=== PATIENT | male | born 1955 | race Caucasian/White ===

== ENCOUNTER 2018-04-09 11:21 | Inpatient (IN) | payer OTHER, SELFPAY ==
[2018-04-09] VITALS (9 sets, daily range): BP systolic 118–147; BP diastolic 54–89; PULSE 85–99; RESP 16–18; TEMP 36.4–37.1; O2SAT 97–100; BMI 19.8; BMI 21.1
--- NOTE | 2018-04-09 11:51 | RAD_ITS ---
STUDY: X-RAY - PELVIS AND LEFT HIP REASON FOR EXAM: Left hip injury from a 12 foot fall. TECHNIQUE: Radiological exam, hip, unilateral, with pelvis when performed; 2 or 3 views. COMPARISON: None. FINDINGS: Normal visualized soft tissue structures. Normal bilateral iliac wings, sacroiliac joints and visualized sacrum. Normal bilateral superior and inferior pubic rami. Normal pubic symphysis. Normal bilateral ischial tuberosities. There is a comminuted left intertrochanteric fracture with angulation/foreshortening. Normal acetabulum. Normal hip joint. RAD/HIP, UNI W/ Pelvis 2-3 Views IMPRESSION: Left intertrochanteric fracture. Electronically Signed: Rashi Dean MD at 13:00 EST Tel , Service support ,
--- NOTE | 2018-04-09 11:58 | ED.DCSUM_ITS ---
- ER Visit Summary Date of Service: 04/09/18 Chief Complaint: Fell 12 feet and left hip pain History of Present Illness: The patient is a 62 M past medical history. Patient was on a ladder working on the roof for work the ladder slipped he fell approximately 12 feet to cement landing on his left hip. Unable to stand. Unable to bear weight. Denies any other injuries. No prior hip history. Denies hitting his head. Denies any LOC. He is on no medications and no blood thinners. Physical Examination: Older male vital signs are stable afebrile. Pulse ox 9% on room air no hypoxia. H EENT exam atraumatic. Pupils round reactive light. Extra motions are intact. No signs of facial or scalp trauma nontender no hematomas. C-spine nontender. Trachea midline. Full range of motion to his neck. Lungs clear to auscultation bilaterally. Chest wall nontender. Heart regular rate and rhythm no murmur rate about 90. Abdomen soft nontender. No signs of trauma. Pelvic girdle intact. Pain on palpation to his left hip. With decreased range of motion. And pain with passive range of motion. Both upper extremities right lower extremity nontender normal. His distal left thigh, knee, lower leg, ankle and foot are nontender neurovascular intact. He can wiggle his toes. He has normal sensation of both feet. He is a normal DP pulse on the left. Back is nontender. Neurologically is awake and alert with no focal motor deficits. Test Results: Pelvis and left hip x-ray shows a left hip comminuted intertrochanteric hip fracture. Femur otherwise unremarkable. Chest x-ray no acute abnormality. Normal cardiac silhouette. CBC normal. BMP normal. PT/INR normal. EKG sinus rhythm rate 82 no acute abnormality. Emergency Department Course and Treatment: Patient treated with IV morphine and Zofran Repeat exam patient is doing well at 1418. Treatment Plan: I spoke with Dr. Diallo Alicea on-call for orthopedics and Dr. rKistal Burgos of the hospitalist. Patient will be admitted. Disposition: Admit Impression: Fell approximately 12 feet from a ladder Workers comp injury Acute left hip comminuted hip fracture This note was generated with [employer] dictation software. It may contain incorrect words, spelling, and punctuation that were not noted in review of the chart prior to signing ED Disposition - Plan for ED Patient: Chief Complaint: Lower Extremity Injury
[2018-04-09] MEDS: Ondansetron 4 MG/2 ML Vial IV (12:09)
[2018-04-09] MEDS: morphine 8 MG/ML Syringe IV (12:09)
--- NOTE | 2018-04-09 12:55 | RAD_ITS ---
STUDY: X-RAY - LEFT FEMUR REASON FOR STUDY: Lateral rotation of foot, 12 foot fall. TECHNIQUE: Radiological exam, femur, minimum 2 views COMPARISON: None. FINDINGS: There is a comminuted intertrochanteric fracture with angulation and foreshortening. There is chondrocalcinosis in the knee. There is vascular calcification. RAD/Femur Min 2 Views IMPRESSION: Left intertrochanteric fracture. Electronically Signed: Rashi Dean MD at 13:52 EST Tel , Service support ,
--- NOTE | 2018-04-09 12:58 | EKG12_ITS ---
Test Reason : FALL Blood Pressure : / mmHG Vent. Rate : 082 BPM Atrial Rate : 082 BPM P-R Int : 126 ms QRS Dur : 096 ms QT Int : 388 ms P-R-T Axes : 073 043 074 degrees QTc Int : 453 ms Normal sinus rhythm Incomplete right bundle branch block Borderline ECG Confirmed by LEONORA VICKERS, NADIA ([id number]), order editor CLAIRE BUCKLEY ([id number] on 04/11/2018 3:23:15 PM Referred By: NANCY Confirmed By:NADIA LEA MD
--- NOTE | 2018-04-09 13:00 | RAD_ITS ---
STUDY: X-RAY CHEST REASON FOR EXAM: Male, 62 years old. [Fracture. TECHNIQUE: Single AP portable view of the chest. COMPARISON: None. FINDINGS: Hyperinflation. The lungs are clear. There is no demonstrated pleural abnormality. Normal size heart. Normal mediastinum and ira. Normal visualized pulmonary arteries. Normal visualized aortic arch and descending thoracic aorta. Normal visualized thoracic spine. Normal visualized ribs, clavicles, and shoulders. There is no demonstrated abnormality of the visualized soft tissue structures of the upper abdomen. RAD/Chest 1 View (Portable) IMPRESSION: Hypoinflation. The lungs are clear. Electronically Signed: Felipe Ferguson MD at 13:42 EST Tel [phone], Service support ,
[2018-04-09 13:15] LABS: Hematocrit 41.3 % (40-54); Hemoglobin 14.1 g/dl (13.0-16.5); Mean Corp Hgb Conc 34.1 g/gl (32-36); Mean Corpuscular Hgb 31.8 pg (27.0-32.0); Mean Platelet Vol. 8.5 fl (6.2-12.0); Platelet Count 161 K/mm3 (150-450); RBC Distribution Width CV 12.9 % (11.6-14.6); RBC Distribution Width SD 43.8 fl (35.1-43.9); Red Blood Count 4.44 M/mm3 (4.6-6.2); White Blood Count 5.1 K/mm3 (4.4-11.0)
[2018-04-09 13:18] LABS: Prothrombin Time (Protime)PT. 13.6 SECONDS (11.7-14.9); Scan Indicated on CBC? Y/N NO
[2018-04-09 13:22] LABS: Anion Gap 9 (5-15); BUN 10 mg/dL (7-18); Calcium,Total 8.7 mg/dL (8.5-10.1); Chloride 101 mmol/L (98-107); Creatinine, Serum 0.77 mg/dL (0.70-1.30); EST Glomerular Filtration Rate 109 mL/min (>60); Est Glom Filt Rate - Afr Amer 132 mL/min (>60); Estimated Creatinine Clearance 82.96 ml/min; Glucose 140 mg/dL (74-106); Potassium 3.7 mmol/L (3.5-5.1); Sodium Level 138 mmol/L (136-145)
--- NOTE | 2018-04-09 14:31 | PCM.HP.STD ---
Problem List (1) Fracture, intertrochanteric, left femur Status: Acute History of Present Illness Date of Admission: 04/09/18 Chief Complaint: left hip pain The patient is a 62 year old M with no medical hx who presents to the ER with c/o left hip pain and inability to walk. He was fixing a roof this morning and fell about 12 feet onto his left hip. He developed severe pain and inability to stand up. He dragged himself to his truck. He has no numbness or tingling. He has had multiple surgeries in the past with no issues with anasthesia. He currently has no SOB, cough, dizziness, LH, nausea or vomiting. He has no pain unless he moves and appears comfortable. XRay shows left comminuted intertroch fx. Dr. Alicea will take him to surgery. [] Past Medical History Allergies No Known Allergies Allergy (Verified 04/09/18 11:53) Lives: Spouse/ Significant Other Smoking Status: Former smoker Alcohol: None Drugs: None - *Family History Maternal History Items: Heart Disease - MVP Paternal History Items: No pertinent history Review of Systems Constitutional: Denies: Chills, Fever, Weight Change HEENT: Denies: Head Aches, Sinus Congestion, Sinus Drainage Cardiovascular: Denies: Chest Pain, Palpitations Respiratory: Denies: Cough, Shortness of breath at rest, Sputum production Gastrointestinal: Denies: Abdominal Pain, Nausea, Vomiting Genitourinary: Denies: Dysuria Musculoskeletal: Reports: Joint Pain - left hip. Denies: Joint Tenderness Skin: Denies: Rash, Wounds Neurological: Denies: Numbness, Tingling, Focal weakness Psychiatric: Denies: Anxiety, Depression, Homicidal Ideations, Suicidal Ideations Hematologic/ Lymphatic: Denies: Easy Bruising, Easy Bleeding VTE Information - Inpt Only VTE Present on Admission: No VTE Mechan Device Prophylaxis: SCD's VTE Pharm Prophylaxis ordered?: No Reason prophylaxis not ordered:: Medical Contraindication Patient Problems: Active and Suspected Problems Fracture, intertrochanteric, left femur (Acute) - Physical Exam General: Alert, Oriented x3, Cooperative HEENT: Atraumatic, PERRLA, EOMI, Normocephalic Neck: Supple, No JVD, Negative Carotid Bruits Lungs: Clear to auscultation, Normal air movement Cardiovascular: Regular rate, No murmurs Abdomen: Bowel Sounds Present, Soft, Non Tender Extremities: No edema, Capillary Refill Less than 3 Seconds Skin: No rashes, No breakdown Musculoskeletal: No Tenderness to Palpation of Joints or Extremities, - - left leg is cool, PMS intact. Neurological: Cranial nerves II-XII grossly intact Psych/Mental Status: Normal Affect, Appropriate, Alert and oriented to time, place, person, mood and affect Vital Signs Temp Pulse Resp BP Pulse Ox 97.8 F 94 16 132/84 H 97 04/09/18 11:22 04/09/18 14:11 04/09/18 14:11 04/09/18 14:11 04/09/18 14:11 Oxygen Delivery Method Room Air Weight: 130 lb Body Mass Index (BMI) 19.8 Laboratory Tests Past 24 Hrs 04/09/18 04/09/18 04/09/18 11:30 11:30 11:30 WBC 5.1 RBC 4.44 L Hgb 14.1 Hct 41.3 MCV 93.0 MCH 31.8 MCHC 34.1 RDW 12.9 RDW Differential 43.8 Plt Count 161 MPV 8.5 PT 13.6 INR 1.0 Sodium 138 Potassium 3.7 Chloride 101 Carbon Dioxide 28.0 Anion Gap 9 BUN 10 Creatinine 0.77 Estim Creat Clear Calc 82.96 Est GFR (MDRD) Af Amer 132 Est GFR (MDRD) Non-Af 109 BUN/Creatinine Ratio 13.0 Glucose 140 H Calcium 8.7 Blood Type Antibody Screen 04/09/18 13:15 WBC RBC Hgb Hct MCV MCH MCHC RDW RDW Differential Plt Count MPV PT INR Sodium Potassium Chloride Carbon Dioxide Anion Gap BUN Creatinine Estim Creat Clear Calc Est GFR (MDRD) Af Amer Est GFR (MDRD) Non-Af BUN/Creatinine Ratio Glucose Calcium Blood Type A POSITIVE Antibody Screen NEGATIVE Assessment/Plan All Active Problems Fracture, intertrochanteric, left femur (Acute) 1. Acute comminunted left intertroch fx 2/2 fall from 12 feet - Consult Dr. Alicea for surgery. Stable at rest. No medical hx. Does not take meds. Care as per orthopedic surgery. CXR is clear. DVT ppx: per ortho DC planning: PTOT This patient was seen by Anselmo Tinsley PA-C under the supervision of Dr. Burgos.
[2018-04-09] MEDS: morphine 8 MG/ML Syringe 6 MG IV (15:22)
[2018-04-09] MEDS: 0.9% NaCl Peripheral Flush Adult/Peds IV (15:43)
[2018-04-09 15:53] LABS: Magnesium 1.8 mg/dL (1.6-2.6)
[2018-04-09] MEDS: 0.9% Normal Saline 1,000 ML 125 ML IV ×2 (16:04→21:33)
--- NOTE | 2018-04-09 18:50 | RAD_ITS ---
STUDY: X-RAY - PELVIS AND LEFT HIP REASON FOR EXAM: Male, 62 years old. Left hip ORIF TECHNIQUE: Radiological exam, hip, unilateral, with pelvis when performed; minimum of 4 views COMPARISON: None. FINDINGS: 5 images were submitted, as radiology support for c-arm imaging in the operating room. This is not a diagnostic examination. Images for documentation purposes only. Fluoroscopy time if reported: RAD/Hip uni 4+ views with Pelvis IMPRESSION: Intraoperative fluoroscopic image guidance. Electronically Signed: Belinda Kya MD at 23:47 EST , Service support ,
[2018-04-09] MEDS: Cefazolin 1 GM/50 ML BAG IV (19:14)
--- NOTE | 2018-04-09 20:25 | CON.PCM_ITS ---
Reason for Consult Date of Consultation: 04/09/18 History of Present Illness: The patient is a 62 year old male patient that was at work earlier today when he fell off a ladder landing on his left hip. Left hip was fine before that. He denies head injury or loss of consciousness. He was not able to ambulate. He was brought to the hospital and diagnosed with a left hip fracture. He was admitted to the medical service. Orthopedics was appropriately consulted. Denies pain other than left hip. [] Past Medical History Allergies No Known Allergies Allergy (Verified 04/09/18 11:53) Home Medications: Ambulatory Orders Medication Instructions Recorded Glucosamine/D3/Boswellia Antonia 1 tab PO DAILY 04/09/18 [Glucosamine Daily Complex Tab] Multivit-Min/FA/Lycopen/Lutein 1 tab PO DAILY 04/09/18 [Centrum Silver Men Tablet] [place]-3 Fatty Acids/Fish Oil [Fish 1 each PO DAILY 04/09/18 Oil 1,000 mg Capsule] RX: Zinc 50 mg PO DAILY 04/09/18 Saw [place] Fruit [Saw [place]] 450 mg PO BID 04/09/18 Surgical History: appendectomy, herniorrhaphy Lives: Spouse/ Significant Other Smoking Status: Former smoker Tobacco Use: Cigarettes Alcohol: None Drugs: None - *Family History Maternal History Items: Heart Disease - MVP Paternal History Items: No pertinent history Patient Problems: Active and Suspected Problems Fracture, intertrochanteric, left femur (Acute) Objective: Patient is lying comfortably in bed. He is alert and oriented x3 and cooperative exam. Pleasant during exam. He denies right hip pain. Does complain of left hip pain with moving it. He has pain on palpation about the left hip. He had no right hip pain with rotation or motion of the right hip. No pain with axial loading of the right hip. No calf pain or swelling bilaterally. Good active plantar flexion dorsiflexion toes and ankles. Distal pulses and sensation are intact. Skin is intact about the left hip. No signi ficant pain at the left knee. X-rays of the left hip and femur reviewed showing a comminuted displaced left hip intertrochanteric fracture. Laboratory work and vital signs reviewed. Medication list reviewed Case discussed with hospitalist and anesthesia service - Physical Exam Vital Signs Temp Pulse Resp BP Pulse Ox 98.7 F 87 18 118/78 98 04/09/18 15:42 04/09/18 15:42 04/09/18 15:42 04/09/18 15:42 04/09/18 15:42 Oxygen Delivery Method Room Air Weight: 63.049 kg Body Mass Index (BMI) 21.1 Laboratory Tests Past 24 Hrs 04/09/18 04/09/18 04/09/18 11:30 11:30 11:30 WBC 5.1 RBC 4.44 L Hgb 14.1 Hct 41.3 MCV 93.0 MCH 31.8 MCHC 34.1 RDW 12.9 RDW Differential 43.8 Plt Count 161 MPV 8.5 PT 13.6 INR 1.0 Sodium 138 Potassium 3.7 Chloride 101 Carbon Dioxide 28.0 Anion Gap 9 BUN 10 Creatinine 0.77 Estim Creat Clear Calc 82.96 Est GFR (MDRD) Af Amer 132 Est GFR (MDRD) Non-Af 109 BUN/Creatinine Ratio 13.0 Glucose 140 H Calcium 8.7 Magnesium Blood Type Antibody Screen 04/09/18 04/09/18 11:30 13:15 WBC RBC Hgb Hct MCV MCH MCHC RDW RDW Differential Plt Count MPV PT INR Sodium Potassium Chloride Carbon Dioxide Anion Gap BUN Creatinine Estim Creat Clear Calc Est GFR (MDRD) Af Amer Est GFR (MDRD) Non-Af BUN/Creatinine Ratio Glucose Calcium Magnesium 1.8 Blood Type A POSITIVE Antibody Screen NEGATIVE Assessment/Plan All Active Problems Fracture, intertrochanteric, left femur (Acute) Left hip work-related displaced intertrochanteric fracture. Operative and nonoperative interventions discussed. Surgery was recommended. I explained I would recommend a long intramedullary nail to fix the fracture. Possibility of replacement was discussed. Possibility of plating discussed. He wished to proceed with intramedullary nailing, open reduction internal fixation as I discussed. Risk of surgery including but not limited to from operative or postoperative complications. Risk of anesthetic complications such as heart attacks, strokes, seizures, or . Risk of infections. Risk of damage to nerves arteries tendons. Risk of inadvertent fractures or dislocations. Risk of bone or wound healing complications. Possibility of nonunion malunion pain stiffness weakness. Possible need for further surgery such as hardware removal. Risk of DVT PE and other potential complications could lead to or disability explained. No guarantees were stated or implied. All of their questions were answered. Appropriate informed consent was obtained and signed for surgical intervention. Ancef has been ordered. We will plan to use Xarelto postoperatively. He understands he will need to be in touchdown or nonweightbearing for several weeks until the fracture starts to heal.
--- NOTE | 2018-04-09 20:26 | PCM.OP.BLANK ---
Operative Report Date of Procedure: 04/09/18 Preoperative diagnosis: Left hip displaced unstable intertrochanteric fracture Postoperative diagnosis: Same Title of operation: Left hip open reduction internal fixation, intramedullary nail fixation, locked Surgeon: Dr. Diallo Alicea [employer] Position Clerk: Pily Gaitan PA-C Anesthesia: General Medications: Ancef Indications for surgery: Patient is an 62-year-old male sustained a left hip fracture earlier today at work. Patient and their family explained diagnosis and treatment options. Patient evaluated by the medical services. Patient did wish to have surgery. Appropriate informed consent obtained and signed. Findings: Patient had a displaced unstable intertrochanteric hip fracture. They underwent standard reduction, internal fixation using a Mikki long gamma nail. X-rays taken throughout. press assistant and feeder, physician bankruptcy assistant, was utilized throughout the entire procedure. They were vital to the procedure from beginning to end. They help with patient transfer, patient padding and positioning, fracture reduction, maintenance of fracture reduction, internal fixation of implants, wound closure, bandage application, patient transfer. Without surgical instrument maker, surgical time would have been significantly increased and surgical outcome could have been less optimal. Procedure: Patient was taken to the operating room. Placed under a general anesthetic and transferred to the operating table with the help of the bankruptcy assistant. With the help of the bankruptcy assistant patient was prepped and padded for surgery. Left foot was well-padded and placed in the traction boot. Right lower extremity was abducted and flexed out of harm's way. SHERRI hose and SCDs utilized. Fluoroscopy was brought in. With the help of the bankruptcy assistant and manipulation of the limb, reduction was nicely obtained as verified under AP lateral and oblique fluoroscopic images. Reduction was improved with anterior to posterior pressure on the fracture site. Left hip was prepped padded draped in usual orthopedic sterile fashion for the procedure. Longitudinal incision was made just proximal to the greater trochanter. Taken through skin and subcutaneous tissue. Sharp awl was placed on the tip of the greater trochanter. Position verified under AP and lateral fluoroscopic images. This was then taken down inside the bone. Slightly bent ball-tipped guide anne was then placed from the tip of the greater trochanter into the intra-medullary canal of the femur. Its position verified radiographically. Guide anne was verified to be just above the patella on the AP and lateral x-rays of the knee. We measured the length of the guide anne within the bone. Short reamer was then done over the tip of this with the help of the bankruptcy assistant holding the soft tissue protector appropriately. Long reaming was done starting with a 9 mm reamer and reaming up to 12.5 mm distally. Was then with the help of the bankruptcy assistant . once reaming was done we placed the short 125? angle device over the guidepin. This was easily introduced. Guide anne removed. Outrigger device was utilized to position a guidepin from the lateral cortex of the femur across the fracture site and into the femoral head in a good position centrally, as noted on AP lateral and oblique fluoroscopic images. This was measured. Appropriate reaming done. Appropriate length lag screw was placed from the lateral cortex of the femur into the femoral head. A small amount of the screw was noted to be protruding laterally as planned. No cartilage penetration of the femoral head noted on any x-ray. Fracture was then compressed with the outrigger device. Screw was placed seated down completely, confirmed, and then loosened one fourth turn. Fluoroscopy was utilized distally to verify the position of the anne on AP and lateral images. Lateral image was used to verify the holes within the anne. We placed a bit with the help of fluoroscopy through the slotted hole distally to allow for compression. We then measured and placed the appropriate length to cross locking screw through the slotted hole this was confirmed to be of adequate length in good position on AP and lateral images. Outrigger device removed. Final set of AP and lateral proximal and distal x-rays taken and saved. Incisions were thoroughly irrigated. Closing by the bankruptcy assistant with deep 0 Vicryl, mid layer 0 Vicryl, inverted 2-0 Vicryl, skin kel. Puncture wounds closed with inverted 2-0 Vicryl and kel. Xeroform 4 x 4's ABD tape applied. Patient was awoken from their anesthetic, transferred back to their own bed with the help of the bankruptcy assistant and into recovery room in satisfactory condition. Patient will continue to be admitted to the hospital under the hospitalist service.
--- NOTE | 2018-04-09 20:32 | OP.PCM_ITS ---
Operative Report Date of Procedure: 04/09/18 Preoperative diagnosis: Left hip displaced unstable intertrochanteric fracture Postoperative diagnosis: Same Title of operation: Left hip open reduction internal fixation, intramedullary nail fixation, locked Surgeon: Dr. Diallo Alicea Human Resources Advisor: Pily Gaitan PA-C Anesthesia: General Medications: Ancef Indications for surgery: Patient is an 62-year-old male sustained a left hip fracture earlier today at work. Patient and their family explained diagnosis and treatment options. Patient evaluated by the medical services. Patient did wish to have surgery. Appropriate informed consent obtained and signed. Findings: Patient had a displaced unstable intertrochanteric hip fracture. They underwent standard reduction, internal fixation using a Mikki long gamma nail. X-rays taken throughout. players assistant, physician chemical laboratory assistant, was utilized throughout the entire procedure. They were vital to the procedure from beginning to end. They help with patient transfer, patient padding and positioning, fracture reduction, maintenance of fracture reduction, internal fixation of implants, wound closure, bandage application, patient transfer. Without assembler surgical garment, surgical time would have been significantly increased and surgical outcome could have been less optimal. Procedure: Patient was taken to the operating room. Placed under a general anesthetic and transferred to the operating table with the help of the chemical laboratory assistant. With the help of the chemical laboratory assistant patient was prepped and padded for surgery. Left foot was well-padded and placed in the traction boot. Right lower extremity was abducted and flexed out of harm's way. SHERRI hose and SCDs utilized. Fluoroscopy was brought in. With the help of the chemical laboratory assistant and manipulation of the limb, reduction was nicely obtained as verified under AP lateral and oblique fluoroscopic images. Reduction was improved with anterior to posterior pressure on the fracture site. Left hip was prepped padded draped in usual orthopedic sterile fashion for the procedure. Longitudinal incision was made just proximal to the greater trochanter. Taken through skin and subcutaneous tissue. Sharp awl was placed on the tip of the greater trochanter. Position verified under AP and lateral fluoroscopic images. This was then taken down inside the bone. Slightly bent ball-tipped guide anne was then placed from the tip of the greater trochanter into the intra-medullary canal of the femur. Its position verified radiographically. Guide anne was verified to be just above the patella on the AP and lateral x-rays of the knee. We measured the length of the guide anne within the bone. Short reamer was then done over th e tip of this with the help of the chemical laboratory assistant holding the soft tissue protector appropriately. Long reaming was done starting with a 9 mm reamer and reaming up to 12.5 mm distally. Was then with the help of the chemical laboratory assistant . once reaming was done we placed the short 125? angle device over the guidepin. This was easily introduced. Guide anne removed. Outrigger device was utilized to position a guidepin from the lateral cortex of the femur across the fracture site and into the femoral head in a good position centrally, as noted on AP lateral and oblique fluoroscopic images. This was measured. Appropriate reaming done. Appropriate length lag screw was placed from the lateral cortex of the femur into the femoral head. A small amount of the screw was noted to be protruding laterally as planned. No cartilage penetration of the femoral head noted on any x-ray. Fracture was then compressed with the outrigger device. Screw was placed seated down completely, confirmed, and then loosened one fourth turn. Fluoroscopy was utilized distally to verify the position of the anne on AP and lateral images. Lateral image was used to verify the holes within the anne. We placed a bit with the help of fluoroscopy through the slotted hole distally to allow for compression. We then measured and placed the appropriate length to cross locking screw through the slotted hole this was confirmed to be of adequate length in good position on AP and lateral images. Outrigger device removed. Final set of AP and lateral proximal and distal x-rays taken and saved. Incisions were thoroughly irrigated. Closing by the chemical laboratory assistant with deep 0 Vicryl, mid layer 0 Vicryl, inverted 2-0 Vicryl, skin kel. Puncture wounds closed with inverted 2-0 Vicryl and kel. Xeroform 4 x 4's ABD tape applied. Patient was awoken from their anesthetic, transferred back to their own bed with the help of the chemical laboratory assistant and into recovery room in satisfactory condition. Patient will continue to be admitted to the hospital under the hospitalist service.
[2018-04-09] MEDS: oxyCODONE 5 MG Tablet PO (21:29)
[2018-04-09] MEDS: Acetaminophen 325 MG Tablet 650 MG PO (21:30)
[2018-04-10 01:30] VITALS: BP 146/78; PULSE 89; RESP 16; TEMP 36.9; O2SAT 98; BMI 19.8
[2018-04-10] MEDS: Cefazolin 1 GM/50 ML BAG IV ×3 (01:31→12:58)
[2018-04-10] MEDS: 0.9% Normal Saline 1,000 ML 125 ML IV ×3 (05:50→22:25)
[2018-04-10] MEDS: Acetaminophen 325 MG Tablet 650 MG PO ×2 (05:50→14:58)
[2018-04-10] MEDS: oxyCODONE 5 MG Tablet PO ×4 (05:53→18:59)
[2018-04-10 06:11] LABS: Absolute Lymphocyte Count 0.49 X10^3/ul (0.83-4.51); Absolute Neutrophil Count 7.5 X10^3/uL (2.0-7.7); Hemoglobin 10.6 g/dl (13.0-16.5); Lymphocyte # 0.49 X10^3/ul (4.0); Lymphocyte % 5.7 % (19-41); Mean Corp Hgb Conc 34.2 g/gl (32-36); Mean Corpuscular Volume 93.7 fL (80-94); Mean Platelet Vol. 8.3 fl (6.2-12.0); Monocyte# 0.64 X10^3/uL; Monocyte% 7.4 % (0-10); Neutrophil # 7.52 X10^3/uL (2.7-7.7); Neutrophil % 86.7 % (47-70); Platelet Count 148 K/mm3 (150-450); RBC Distribution Width CV 12.5 % (11.6-14.6); RBC Distribution Width SD 41.2 fl (35.1-43.9); Red Blood Count 3.31 M/mm3 (4.6-6.2); White Blood Count 8.7 K/mm3 (4.4-11.0)
[2018-04-10 06:14] LABS: Differential Indicated SCAN CRITERIA MET; POSITIVE COUNT NO; POSITIVE DIFFERENTIAL YES; POSITIVE MORPHOLOGY NO
[2018-04-10 06:19] LABS: Anion Gap 9 (5-15); BUN 9 mg/dL (7-18); BUN/Creat Ratio 13.1 RATIO (10-20); Calcium,Total 7.9 mg/dL (8.5-10.1); Chloride 101 mmol/L (98-107); Creatinine, Serum 0.68 mg/dL (0.70-1.30); EST Glomerular Filtration Rate 124 mL/min (>60); Est Glom Filt Rate - Afr Amer 150 mL/min (>60); Estimated Creatinine Clearance 100.45 ml/min; Glucose 143 mg/dL (74-106); Potassium 3.9 mmol/L (3.5-5.1); Sodium Level 136 mmol/L (136-145)
--- NOTE | 2018-04-10 06:43 | NURSING ---
Patient stood at bedside x1 assist with walker, tolerated well.
[2018-04-10 07:59] VITALS: BP 116/71; PULSE 88; RESP 18; TEMP 37; O2SAT 100
[2018-04-10] MEDS: Rivaroxaban 10 MG Tablet PO (08:00)
--- NOTE | 2018-04-10 10:27 | PCM.PN.HOSP ---
Patient Problems: Active and Suspected Problems Fracture, intertrochanteric, left femur (Acute) Subjective: Patient seen and examined. He was admitted through the ED on 04/09/2018 with a complaint of left hip pain after he fell off a roof about 12 feet high. She was of the hip and pelvis showed left intertrochanteric fracture. Patient had surgery on 04/09/2018 by orthopedic surgery. Today's postop day 1. Patient seen and examined. He had no complaints and felt well. Pain is well. He denies any fever chills, any cough or chest pain, shortness of breath, abdominal pain, any diarrhea vomiting. Review of systems otherwise negative. He is due to have physical therapy today and based on that, decision be made about when he will go home. Labs and vitals reviewed. Vitals/I&O's: Vital Signs Temp Pulse Resp BP Pulse Ox 98.6 F 88 18 116/71 100 04/10/18 07:59 04/10/18 07:59 04/10/18 07:59 04/10/18 07:59 04/10/18 07:59 Oxygen Flow Rate (L/min) 2 Oxygen Delivery Method Room Air Weight: 139 lb Body Mass Index (BMI) 21.1 Intake and Output for Last 24 Hours 04/08/18 04/09/18 04/10/18 23:59 23:59 23:59 Intake Total 3065 / 3065 1633 / 1633 Output Total 1300 / 1300 Balance 3065 / 3065 333 / 333 General: Alert, Oriented x3, Cooperative, No apparent distress HEENT: Atraumatic, PERRLA, EOMI, Normocephalic Oral: Moist Mucosa Neck: Supple, No JVD, Negative Carotid Bruits Lungs: Clear to auscultation, Normal air movement, No rhonchi, No wheeze, No rales Cardiovascular: Regular rate, No murmurs Abdomen: Bowel Sounds Present, Soft, Non Tender, Non-Distended Extremities: No clubbing, No cyanosis, No edema, - Skin: No rashes, No breakdown Musculoskeletal: No Tenderness to Palpation of Joints or Extremities, - - left hip dressing is clean and dry. Minimal tenderness to palpation of left hip. DIstal dorsalis pedis pulses palpable Neurological: Cranial nerves II-XII grossly intact Psych/Mental Status: Normal Affect, Appropriate, Alert and oriented to time, place, person, mood and affect Laboratory Results 04/09/18 11:30: WBC 5.1, RBC 4.44 L, Hgb 14.1, Hct 41.3, MCV 93.0, MCH 31.8, MCHC 34.1, RDW 12.9, RDW Differential 43.8, Plt Count 161, MPV 8.5 04/09/18 11:30: PT 13.6, INR 1.0 04/09/18 11:30: Sodium 138, Potassium 3.7, Chloride 101, Carbon Dioxide 28.0, Anion Gap 9, BUN 10, Creatinine 0.77, Estim Creat Clear Calc 82.96, Est GFR (MDRD) Af Amer 132, Est GFR (MDRD) Non-Af 109, BUN/Creatinine Ratio 13.0, Glucose 140 H, Calcium 8.7 04/09/18 11:30: Magnesium 1.8 04/09/18 13:15: Blood Type A POSITIVE, Antibody Screen NEGATIVE 04/10/18 05:25: WBC 8.7, RBC 3.31 L, Hgb 10.6 L, Hct 31.0 L, MCV 93.7, MCH 32.0, MCHC 34.2, RDW 12.5, RDW Differential 41.2, Plt Count 148 L, MPV 8.3, Immature Gran % (Auto) 0.200, Neut % (Auto) 86.7 H, Lymph % (Auto) 5.7 L, [place] % (Auto) 7.4, Eos % (Auto) 0.0, Baso % (Auto) 0.0, Absolute Neuts (auto) 7.5, Absolute Lymphs (auto) 0.49 L, Total Counted Not Reportable 04/10/18 05:25: Sodium 136, Potassium 3.9, Chloride 101, Carbon Dioxide 26.0, Anion Gap 9, BUN 9, Creatinine 0.68 L, Estim Creat Clear Calc 100.45, Est GFR (MDRD) Af Amer 150, Est GFR (MDRD) Non-Af 124, BUN/Creatinine Ratio 13.1, Glucose 143 H, Calcium 7.9 L Diagnostic Data Femur X-Ray 04/09/18 12:55 IMPRESSION: Left intertrochanteric fracture. Electronically Signed: Rashi Dean MD at 13:52 EST Tel , Service support , Chest X-Ray 04/09/18 13:00 IMPRESSION: Hypoinflation. The lungs are clear. Electronically Signed: Felipe Ferguson MD at 13:42 EST Tel [phone], Service support , Hip/Pelvis X-Ray 04/09/18 18:50 IMPRESSION: Intraoperative fluoroscopic image guidance. Electronically Signed: Belinda Kay MD at 23:47 EST , Service support , Current Medications Acetaminophen (Tylenol) 650 mg PO Q6H PRN PRN PRN Reason: Mild Pain (scale 0-3)/T>100.7 Last Admin: 04/10/18 05:50 Dose: 650 mg Al Hydroxide/Mg Hydroxide (Mylanta Ii) 30 ml PO Q6H PRN PRN PRN Reason: Gastric burning Sodium Chloride () 250 mls @ 15 mls/hr IV .[id number] PRN PRN Reason: SALINE FLUSH Sodium Chloride () 1,000 mls @ 125 mls/hr IV .Q8H [facility] Last Admin: 04/10/18 05:50 Dose: 125 mls/hr Cefazolin Sodium () 1 gm in 50 mls @ 100 mls/hr IV Q6H [facility] Stop: 04/10/18 13:29 Last Admin: 04/10/18 07:04 Dose: 100 mls/hr Magnesium Hydroxide (Milk Of Magnesia) 30 ml PO DAILY PRN PRN PRN Reason: Constipation Morphine Sulfate () 2 - 4 mg IV Q3H PRN PRN PRN Reason: Severe Pain (pain scale 6-10) Morphine Sulfate () 1 - 2 mg IV Q4H PRN PRN PRN Reason: Moderate Pain (pain scale 4-5) Morphine Sulfate () 2 - 4 mg IV Q3H PRN PRN PRN Reason: Severe Pain (pain scale 6-10) Ondansetron HCl (Zofran) 4 mg IV Q8H PRN PRN PRN Reason: NAUSEA Oxycodone HCl (Oxyir) 5 - 10 mg PO Q4H PRN PRN PRN Reason: Moderate Pain (pain scale 4-5) Last Admin: 04/10/18 05:53 Dose: 5 mg Promethazine HCl (Phenergan) 12.5 mg IV Q6H PRN PRN PRN Reason: NAUSEA/VOMITING Rivaroxaban (Xarelto) 10 mg PO DAILY@0600 [facility] Last Admin: 04/10/18 08:00 Dose: 10 mg Sodium Chloride () 5 - 30 ml IV UD PRN PRN Reason: SALINE FLUSH Last Admin: 04/09/18 15:43 Dose: 10 ml Medical Necessity - Tobacco Use Smoking Status: Former smoker Tobacco Use: Cigarettes Assessment/Plan All Active Problems Fracture, intertrochanteric, left femur (Acute) 1. Acute communited fracture left intertrochanteric fracture due to fall s/p left hip open reduction and internal fixation with intramedullary nail fixation today is POD 1. has no complaints; pain is well controlled PT/OT on board on IV morphine for pain on IV cefazolin, per orthopedics DVT prophylaxis: on xarelto per ortho Disposition: for dc home tomorrow hopefully if he does well with therapy. To continue with outpatient PT/OT upon discharge. Code Visit Inpatient E&M: 18017 Subs Hosp L2
--- NOTE | 2018-04-10 10:31 | PN_ITS ---
Patient Problems: Active and Suspected Problems Fracture, intertrochanteric, left femur (Acute) Subjective: Patient seen and examined. He was admitted through the ED on 04/09/2018 with a complaint of left hip pain after he fell off a roof about 12 feet high. She was of the hip and pelvis showed left intertrochanteric fracture. Patient had surgery on 04/09/2018 by orthopedic surgery. Today's postop day 1. Patient seen and examined. He had no complaints and felt well. Pain is well. He denies any fever chills, any cough or chest pain, shortness of breath, abdominal pain, any diarrhea vomiting. Review of systems otherwise negative. He is due to have physical therapy today and based on that, decision be made about when he will go home. Labs and vitals reviewed. Vitals/I&O's: Vital Signs Temp Pulse Resp BP Pulse Ox 98.6 F 88 18 116/71 100 04/10/18 07:59 04/10/18 07:59 04/10/18 07:59 04/10/18 07:59 04/10/18 07:59 Oxygen Flow Rate (L/min) 2 Oxygen Delivery Method Room Air Weight: 139 lb Body Mass Index (BMI) 21.1 Intake and Output for Last 24 Hours 04/08/18 04/09/18 04/10/18 23:59 23:59 23:59 Intake Total 3065 / 3065 1633 / 1633 Output Total 1300 / 1300 Balance 3065 / 3065 333 / 333 General: Alert, Oriented x3, Cooperative, No apparent distress HEENT: Atraumatic, PERRLA, EOMI, Normocephalic Oral: Moist Mucosa Neck: Supple, No JVD, Negative Carotid Bruits Lungs: Clear to auscultation, Normal air movement, No rhonchi, No wheeze, No rales Cardiovascular: Regular rate, No murmurs Abdomen: Bowel Sounds Present, Soft, Non Tender, Non-Distended Extremities: No clubbing, No cyanosis, No edema, - Skin: No rashes, No breakdown Musculoskeletal: No Tenderness to Palpation of Joints or Extremities, - - left hip dressing is clean and dry. Minimal tenderness to palpation of left hip. DIstal dorsalis pedis pulses palpable Neurological: Cranial nerves II-XII grossly intact Psych/Mental Status: Normal Affect, Appropriate, Alert and oriented to time, place, person, mood and affect Laboratory Results 04/09/18 11:30: WBC 5.1, RBC 4.44 L, Hgb 14.1, Hct 41.3, MCV 93.0, MCH 31.8, MCHC 34.1, RDW 12.9, RDW Differential 43.8, Plt Count 161, MPV 8.5 04/09/18 11:30: PT 13.6, INR 1.0 04/09/18 11:30: Sodium 138, Potassium 3.7, Chloride 101, Carbon Dioxide 28.0, Anion Gap 9, BUN 10, Creatinine 0.77, Estim Creat Clear Calc 82.96, Est GFR (MDRD) Af Amer 132, Est GFR (MDRD) Non-Af 109, BUN/Creatinine Ratio 13.0, Gluc ose 140 H, Calcium 8.7 04/09/18 11:30: Magnesium 1.8 04/09/18 13:15: Blood Type A POSITIVE, Antibody Screen NEGATIVE 04/10/18 05:25: WBC 8.7, RBC 3.31 L, Hgb 10.6 L, Hct 31.0 L, MCV 93.7, MCH 32.0, MCHC 34.2, RDW 12.5, RDW Differential 41.2, Plt Count 148 L, MPV 8.3, Immature Gran % (Auto) 0.200, Neut % (Auto) 86.7 H, Lymph % (Auto) 5.7 L, [place] % (Auto) 7.4, Eos % (Auto) 0.0, Baso % (Auto) 0.0, Absolute Neuts (auto) 7.5, Absolute Lymphs (auto) 0.49 L, Total Counted Not Reportable 04/10/18 05:25: Sodium 136, Potassium 3.9, Chloride 101, Carbon Dioxide 26.0, Anion Gap 9, BUN 9, Creatinine 0.68 L, Estim Creat Clear Calc 100.45, Est GFR (MDRD) Af Amer 150, Est GFR (MDRD) Non-Af 124, BUN/Creatinine Ratio 13.1, Glucose 143 H, Calcium 7.9 L Diagnostic Data Femur X-Ray 04/09/18 12:55 IMPRESSION: Left intertrochanteric fracture. Electronically Signed: Rashi Dean MD at 13:52 EST Tel , Service support , Chest X-Ray 04/09/18 13:00 IMPRESSION: Hypoinflation. The lungs are clear. Electronically Signed: Felipe Ferguson MD at 13:42 EST Tel [phone], Service support , Hip/Pelvis X-Ray 04/09/18 18:50 IMPRESSION: Intraoperative fluoroscopic image guidance. Electronically Signed: Belinda Kay MD at 23:47 EST , Service support , Current Medications Acetaminophen (Tylenol) 650 mg PO Q6H PRN PRN PRN Reason: Mild Pain (scale 0-3)/T>100.7 Last Admin: 04/10/18 05:50 Dose: 650 mg Al Hydroxide/Mg Hydroxide (Mylanta Ii) 30 ml PO Q6H PRN PRN PRN Reason: Gastric burning Sodium Chloride () 250 mls @ 15 mls/hr IV .[id number] PRN PRN Reason: SALINE FLUSH Sodium Chloride () 1,000 mls @ 125 mls/hr IV .Q8H [facility] Last Admin: 04/10/18 05:50 Dose: 125 mls/hr Cefazolin Sodium () 1 gm in 50 mls @ 100 mls/hr IV Q6H [facility] Stop: 04/10/18 13:29 Last Admin: 04/10/18 07:04 Dose: 100 mls/hr Magnesium Hydroxide (Milk Of Magnesia) 30 ml PO DAILY PRN PRN PRN Reason: Constipation Morphine Sulfate () 2 - 4 mg IV Q3H PRN PRN PRN Reason: Severe Pain (pain scale 6-10) Morphine Sulfate () 1 - 2 mg IV Q4H PRN PRN PRN Reason: Moderate Pain (pain scale 4-5) Morphine Sulfate () 2 - 4 mg IV Q3H PRN PRN PRN Reason: Severe Pain (pain scale 6-10) Ondansetron HCl (Zofran) 4 mg IV Q8H PRN PRN PRN Reason: NAUSEA Oxycodone HCl (Oxyir) 5 - 10 mg PO Q4H PRN PRN PRN Reason: Moderate Pain (pain scale 4-5) Last Admin: 04/10/18 05:53 Dose: 5 mg Promethazine HCl (Phenergan) 12.5 mg IV Q6H PRN PRN PRN Reason: NAUSEA/VOMITING Rivaroxaban (Xarelto) 10 mg PO DAILY@0600 [facility] Last Admin: 04/10/18 08:00 Dose: 10 mg Sodium Chloride () 5 - 30 ml IV UD PRN PRN Reason: SALINE FLUSH Last Admin: 04/09/18 15:43 Dose: 10 ml Medical Necessity - Tobacco Use Smoking Status: Former smoker Tobacco Use: Cigarettes Assessment/Plan All Active Problems Fracture, intertrochanteric, left femur (Acute) 1. Acute communited fracture left intertrochanteric fracture due to fall * s/p left hip open reduction and internal fixation with intramedullary nail fixation * today is POD 1. * has no complaints; pain is well controlled * PT/OT on board * on IV morphine for pain * on IV cefazolin, per orthopedics * DVT prophylaxis: on xarelto per ortho Disposition: for dc home tomorrow hopefully if he does well with therapy. To continue with outpatient PT/OT upon discharge. Code Visit Inpatient E&M: 93967 Subs Hosp L2
[2018-04-10 14:00] VITALS: BP 113/66; PULSE 88; RESP 18; TEMP 36.7; O2SAT 100
--- NOTE | 2018-04-10 14:45 | CHAPLAIN ---
Type of Pastoral Visit _x__ Initial Visit ___ Follow-up Visit ___ On-call Visit ___ General Patient Visit ___ Spiritual Assessment ___ Family Conference ___ Bereavement ___ Rapid Response ___ Code Blue ___ Other (describe below) Pastoral Care Referral From _x__ Patient ___ Family ___ Nurse ___ Physician ___ Special Effects Makeup Artist ___ Senior Training And Development Rep ___ Other (describe below) Sacrament/Intervention _x__ Active listening ___ Anointing ___ Christianity ___ Bereavement ___ Communion _x__ Vanesa exploration ___ _x__ Life review _x__ Prayer ___ Reconciliation ___ Sacrament of Sick _x__ Supportive presence ___ Wedding ___ Other (describe below) Pastoral Comments patient is eager to talk about his vanesa and how he sees God at work in his current situation; pt gives life story; pt and this programmer analyst consultant have known people in common and this was a good connecting point; pt open to future visits and prayer; spouse of pt is with him
[2018-04-10] MEDS: Bisacodyl 5 MG Tablet PO ×2 (14:57→18:58)
--- NOTE | 2018-04-10 15:14 | CASEMGMT ---
RN CM Assessment Pt presented to ER after reported fall of ladder at work. 04/09/18: L hip fx repair. Intro role of CM to patient and his in room. They plan to have pt return home on dc. is able to assist. PCP: Pt does not have PCP, sees physican at work yearly for physicial Specialist: Dr. Alicea Pharmacy: [facility] Living arrangments: one floor, 2 steps into home. PT/OT worked with pt. Recommendation is for wheeled walker and shower chair. Call to [employer], they can provide wheeled walker. Shower chair can be provided by [employer]. Call to Maylin, [facility] for [facility]. States Pat @ Dr. Alicea's office is completing Inpt stay C9 form. Call to Pat- message left requesting they complete C9 form for oupt therapy as ordered by Dr. Alicea. -Billing under [employer]. Call to [employer] @ FAX: C9 form to be completed for Walker and shower chair. Will use [employer] as they have both available. Walker cost ~$79, shower chair ~45. Will need faxed to [employer] and they will submit for approval. Awaiting Dr. Carson to sign prescription and C9 form. Hank GOODMANN RN ACM
--- NOTE | 2018-04-10 16:38 | CASEMGMT ---
ARIELLA CM Note: signed C-9 form faxed to [employer] @ [phone]. Script for walker and shower chair faxed to [facility] with note that this will be processed through [facility] and C9 has been submitted, but not approved yet. Hank KRISHNAN BSN ACM
[2018-04-10] MEDS: Morphine 2 MG/ML Syringe IV (16:46)
--- NOTE | 2018-04-10 16:49 | CASEMGMT ---
RN CM Assessment Pt presented to ER after reported fall of ladder at work. 04/09/18: L hip fx repair. Intro role of CM to patient and his in room. They plan to have pt return home on dc. is able to assist. PCP: Pt does not have PCP, sees physican at work yearly for physicial Specialist: Dr. Alicea Pharmacy: [facility] Living arrangments: one floor, 2 steps into home. PT/OT worked with pt. Recommendation is for wheeled walker and shower chair. -Call to Maylin, [employer] [facility] for [facility]. States Pat @ Dr. Alicea's office is completing Inpt stay C9 form. Call to Pat- message left requesting they complete C9 form for oupt therapy as ordered by Dr. Alicea. -Billing under [employer]. Call to [employer] @ FAX: . RN CM call back information given. Updated that pt will need DME on dc and C9 will be faxed. She requested we list cost on form. -C9 form to be completed for Walker and shower chair. Will use [employer] as they have both available. Walker cost ~$79, shower chair ~$45. Will need faxed to [employer] and they will submit for approval. Awaiting Dr. Carson to sign prescription and C9 form. Hank RODGERS RN ACM
--- NOTE | 2018-04-10 16:51 | CASEMGMT ---
ARIELLA CM Note: signed C-9 form faxed to [employer] @ [phone]. Script for walker and shower chair faxed to [facility] with note that this will be processed through [facility] and C9 has been submitted, but not approved yet. Hank KRISHNAN BSN ACM
--- NOTE | 2018-04-10 18:35 | PN.ORTHO_ITS ---
Patient Problems: Active and Suspected Problems Fracture, intertrochanteric, left femur (Acute) Subjective: Patient is postoperative day #1 from left hip fracture surgery. He denies chest pain or shortness of breath. No productive cough. Pain is tolerable. He is hoping for discharge to home tomorrow. He was ambulating in the alfredo with therapy, walker. Currently lying in bed comfortably. Seen with his present. Objective: Left hip and thigh bandages are on clean and dry. Clinically left leg has good alignment. Good leg lengths. SCDs are on. No calf pain or swelling. Negative Homans sign. Legs are neurovascularly intact. Good active motion of the toes and ankles. No significant hip pain left side with flexion to almost 90. No pain with gentle internal and external rotation. No severe pain with gentle axial loading. Laboratory work and vital signs reviewed Notes from hospitalist reviewed - Physical Exam Vital Signs Temp Pulse Resp BP Pulse Ox 98.0 F 88 18 113/66 100 04/10/18 14:00 04/10/18 14:00 04/10/18 14:00 04/10/18 14:00 04/10/18 14:00 Oxygen Flow Rate (L/min) 2 Oxygen Delivery Method Room Air Weight: 63.049 kg Body Mass Index (BMI) 21.1 Intake and Output for Last 24 Hours 04/08/18 04/09/18 04/10/18 23:59 23:59 23:59 Intake Total 3065 / 3065 3942 / 3942 Output Total 3375 / 3375 Balance 3065 / 3065 567 / 567 Laboratory Tests Past 24 Hrs 04/10/18 04/10/18 05:25 05:25 WBC 8.7 RBC 3.31 L Hgb 10.6 L Hct 31.0 L MCV 93.7 MCH 32.0 MCHC 34.2 RDW 12.5 RDW Differential 41.2 Plt Count 148 L MPV 8.3 Immature Gran % (Auto) 0.200 Neut % (Auto) 86.7 H Lymph % (Auto) 5.7 L [place] % (Auto) 7.4 Eos % (Auto) 0.0 Baso % (Auto) 0.0 Absolute Neuts (auto) 7.5 Absolute Lymphs (auto) 0.49 L Total Counted Not Reportable Sodium 136 Potassium 3.9 Chloride 101 Carbon Dioxide 26.0 Anion Gap 9 BUN 9 Creatinine 0.68 L Estim Creat Clear Calc 100.45 Est GFR (MDRD) Af Amer 150 Est GFR (MDRD) Non-Af 124 BUN/Creatinine Ratio 13.1 Glucose 143 H Calcium 7.9 L Medical Necessity - Tobacco Use Smoking Status: Former smoker Tobacco Use: Cigarettes Assessment/Plan All Active Problems Fracture, intertrochanteric, left femur (Acute) His diagnosis and treatment options regarding his left hip fracture surgery discussed with him and his . He understands to be partial weightbearing o nly. Ice if needed. Pain medications. Stool softener if needed. Hopeful discharge to home tomorrow. We will continue Xarelto for a total of 12 days. At that point most likely we will switch him to 81 mg aspirin. We will see him in the office in 7-10 days for evaluation, x-rays, staple removal. All of his questions answered. They understand and agree with our treatment plan
[2018-04-10 22:27] VITALS: BP 124/63; PULSE 80; RESP 18; TEMP 36.5; O2SAT 99
[2018-04-11] MEDS: oxyCODONE 5 MG Tablet PO ×2 (00:39→10:52)
[2018-04-11] MEDS: Acetaminophen 325 MG Tablet 650 MG PO (00:40)
[2018-04-11 03:34] VITALS: BP 100/61; PULSE 73; RESP 18; TEMP 36.6; O2SAT 98
[2018-04-11] MEDS: Rivaroxaban 10 MG Tablet PO (06:11)
[2018-04-11] MEDS: 0.9% Normal Saline 1,000 ML 125 ML IV (06:13)
[2018-04-11 06:15] LABS: Basophil# 0.01 X10^3/uL; Basophil% 0.2 % (0-1); Eosinophil# 0.09 X10^3/uL; Eosinophils% 1.5 % (0-5); Hematocrit 24.9 % (40-54); Hemoglobin 8.3 g/dl (13.0-16.5); Lymphocyte % 20.3 % (19-41); Mean Corp Hgb Conc 33.3 g/gl (32-36); Mean Corpuscular Hgb 32.2 pg (27.0-32.0); Mean Corpuscular Volume 96.5 fL (80-94); Mean Platelet Vol. 8.2 fl (6.2-12.0); Monocyte# 0.62 X10^3/uL; Monocyte% 10.5 % (0-10); Neutrophil # 3.98 X10^3/uL (2.7-7.7); Neutrophil % 67.3 % (47-70); Platelet Count 101 K/mm3 (150-450); RBC Distribution Width CV 12.6 % (11.6-14.6); RBC Distribution Width SD 42.6 fl (35.1-43.9); Red Blood Count 2.58 M/mm3 (4.6-6.2); White Blood Count 5.9 K/mm3 (4.4-11.0)
[2018-04-11 06:28] LABS: Anion Gap 5 (5-15); BUN 11 mg/dL (7-18); BUN/Creat Ratio 22.1 RATIO (10-20); Calcium,Total 7.6 mg/dL (8.5-10.1); Chloride 111 mmol/L (98-107); EST Glomerular Filtration Rate 179 mL/min (>60); Est Glom Filt Rate - Afr Amer 217 mL/min (>60); Estimated Creatinine Clearance 136.61 ml/min; Glucose 87 mg/dL (74-106); Potassium 3.9 mmol/L (3.5-5.1); Sodium Level 143 mmol/L (136-145)
[2018-04-11 06:34] LABS: POSITIVE COUNT NO; POSITIVE DIFFERENTIAL NO; POSITIVE MORPHOLOGY NO
[2018-04-11 08:05] VITALS: BP 123/71; PULSE 80; RESP 18; TEMP 36.7; O2SAT 100
--- NOTE | 2018-04-11 11:07 | PCM.DC ---
- Discharge Diagnoses Current Active Problems: Current Active and Chronic Problems Fracture, intertrochanteric, left femur (Acute) You will use the following diet at home:: Regular Your food should be the consistency of: Regular Discharge Activity: Use Crutches Weight Bearing Status: Weight bearing as tolerated Call your doctor if you observe: Fever of 101 or Higher, Uncontrolled pain Allergies/Adverse Reactions: Allergies No Known Allergies Allergy (Verified 04/09/18 11:53) Medications to take at Discharge Glucosamine/D3/Boswellia Antonia [Glucosamine Daily Complex Tab] 1 tab PO DAILY 04/09/18 Multivit-Min/FA/Lycopen/Lutein [Centrum Silver Men Tablet] 1 tab PO DAILY 04/09/18 [place]-3 Fatty Acids/Fish Oil [Fish Oil 1,000 mg Capsule] 1 each PO DAILY 04/09/18 Saw [place] Fruit [Saw Mancelona] 450 mg PO BID 04/09/18 Zinc 50 mg PO DAILY 04/09/18 Oxycodone [Oxyir] 5 mg PO Q4H PRN PRN 5 Days #20 tab 04/11/18 Rivaroxaban [Xarelto] 10 mg PO DAILY@0600 #10 tablet 04/11/18 The following prescriptions were given: Oxycodone [Oxyir] 5 mg PO Q4H PRN PRN 5 Days #20 tab PRN Reason: Moderate Pain (pain scale 4-5) Rivaroxaban [Xarelto] 10 mg PO DAILY@0600 #10 tablet Primary Care Physician: Care Physician,No Primary [Primary Care Provider] - Test Results: Test results from this visit will be discussed in further detail at your follow-up appointment, if applicable. Please Follow Up With: Diallo Alicea MD When: 7 days Proposed Discharge Date: 04/11/18 - home with home PT/OT
--- NOTE | 2018-04-11 11:10 | DCINST_ITS ---
- Discharge Diagnoses Current Active Problems: Current Active and Chronic Problems Fracture, intertrochanteric, left femur (Acute) You will use the following diet at home:: Regular Your food should be the consistency of: Regular Discharge Activity: Use Crutches Weight Bearing Status: Weight bearing as tolerated Call your doctor if you observe: Fever of 101 or Higher, Uncontrolled pain Allergies/Adverse Reactions: Allergies No Known Allergies Allergy (Verified 04/09/18 11:53) Medications to take at Discharge Glucosamine/D3/Boswellia Antonia [Glucosamine Daily Complex Tab] 1 tab PO DAILY 04/09/18 Multivit-Min/FA/Lycopen/Lutein [Centrum Silver Men Tablet] 1 tab PO DAILY 04/09/18 [place]-3 Fatty Acids/Fish Oil [Fish Oil 1,000 mg Capsule] 1 each PO DAILY 11/19 Saw [place] Fruit [Saw [place]yr] 450 mg PO BID 04/09/18 Zinc 50 mg PO DAILY 04/09/18 Oxycodone [Oxyir] 5 mg PO Q4H PRN PRN 5 Days #20 tab 04/11/18 Rivaroxaban [Xarelto] 10 mg PO DAILY@0600 #10 tablet 04/11/18 The following prescriptions were given: Oxycodone [Oxyir] 5 mg PO Q4H PRN PRN 5 Days #20 tab PRN Reason: Moderate Pain (pain scale 4-5) Rivaroxaban [Xarelto] 10 mg PO DAILY@0600 #10 tablet Primary Care Physician: Care Physician,No Primary [Primary Care Provider] - Test Results: Test results from this visit will be discussed in further detail at your follow- up appointment, if applicable. Please Follow Up With: Diallo Alicea MD When: 7 days Proposed Discharge Date: 04/11/18 - home with home PT/OT
--- NOTE | 2018-04-11 11:10 | PCM.DC.SUM ---
Discharge Date and Diagnosis Date of Admission: 04/09/18 Date of Discharge: 04/11/18 - Primary Discharge Diagnosis Active and Suspected Problems Fracture, intertrochanteric, left femur (Acute) Hospital Course and Treatment Imaging Results: Diagnostic Data Femur X-Ray 04/09/18 12:55 IMPRESSION: Left intertrochanteric fracture. Electronically Signed: Rashi Dean MD at 13:52 EST Tel , Service support , Chest X-Ray 04/09/18 13:00 IMPRESSION: Hypoinflation. The lungs are clear. Electronically Signed: Felipe Ferguson MD at 13:42 EST Tel [phone], Service support , Hip/Pelvis X-Ray 04/09/18 18:50 IMPRESSION: Intraoperative fluoroscopic image guidance. Electronically Signed: Belinda Kay MD at 23:47 EST , Service support , orthopedic surgery- Dr Diallo Alicea Operations: - - left hip open reduction internal fixaiont, intramedullary nail fixation Procedures: None Summary of Care Provided: The patient is a 62 year old M with no significant past medical history was admitted through the ED with a complaint of falling was at work. He fell off a ladder about 12 feet high onto his left hip and subsequently developed severe debility and pain. X-rays done showed left intertrochanteric fracture. He was admitted to be managed for the fracture and orthopedics was consulted. Patient had open reduction internal fixation of the left intertrochanteric fracture with placement of intramedullary nail on 04/09/2018. He remained stable and tolerated physical therapy well. He was discharged home on 04/11/2018. He is to follow-up with his primary care doctor and orthopedic surgeon. Patient seen and examined prior to discharge. He had no complaints and has been tolerating physical therapy very well. He was eager to go home. He denied fever chills, cough or chest pain, shortness of breath, abdominal pain, diarrhea vomiting. He was times otherwise negative. Labs and vitals reviewed. He was given a prescription for p.o. Xarelto 10 mg daily for 10 days to complete a course of 2 weeks DVT prophylaxis. He was also given a prescription for p.o. oxycodone 5 mg every 4 as needed for total number of 20 tablets. OA RRS records were checked and no red flags noted. He is to follow-up with his primary care doctor and with orthopedic surgery in 1 week. He is to have home PT OT to help with his rehabilitation. [] Objective: Vital Signs Height 5 ft 8 in Weight: 139 lb Weight in Pounds 139.0 lbs Pulse Ox 100 Temperature 98.1 F Pulse Rate 80 Respiratory Rate 18 Blood Pressure [BP] 118/78 Blood Pressure 123/71 Blood Pressure Position [BP] Semi-Fowlers Blood Pressure Position Sitting - Physical Exam General: Alert, Oriented x3, Cooperative HEENT: Atraumatic, PERRLA, EOMI, Normocephalic Oral: Moist Mucosa Neck: Supple, No JVD, Negative Carotid Bruits Lungs: Clear to auscultation, Normal air movement, No rhonchi, No wheeze, No rales Cardiovascular: Regular rate, Regular Rhythm, Normal S1, Normal S2, No murmurs Abdomen: Bowel Sounds Present, Soft, Non Tender, Non-Distended, No Hepato-splenomegaly Extremities: No clubbing, No cyanosis, No edema, Capillary Refill Less than 3 Seconds, - - left hip dressing is clean and dry Skin: No rashes, No breakdown Musculoskeletal: No Tenderness to Palpation of Joints or Extremities Lymphatic: No Cervical, Supraclavicular, or Inguinal Adenopathy Neurological: Cranial nerves II-XII grossly intact Psych/Mental Status: Normal Affect, Appropriate, Alert and oriented to time, place, person, mood and affect Vital Signs Temp Pulse Resp BP Pulse Ox 98.1 F 80 18 123/71 H 100 04/11/18 08:05 04/11/18 08:05 04/11/18 08:05 04/11/18 08:05 04/11/18 08:05 Oxygen Flow Rate (L/min) 2 Oxygen Delivery Method Room Air Weight: 139 lb Body Mass Index (BMI) 21.1 Intake and Output for Last 24 Hours 04/09/18 04/10/18 04/11/18 23:59 23:59 23:59 Intake Total 3065 / 3065 3942 / 3942 2804 / 2804 Output Total 3375 / 3375 3550 / 3550 Balance 3065 / 3065 567 / 567 -746 / -746 Laboratory Tests Past 24 Hrs 04/11/18 04/11/18 05:45 05:45 WBC 5.9 RBC 2.58 L Hgb 8.3 L Hct 24.9 L MCV 96.5 H MCH 32.2 H MCHC 33.3 RDW 12.6 RDW Differential 42.6 Plt Count 101 L MPV 8.2 Immature Gran % (Auto) 0.200 Neut % (Auto) 67.3 Lymph % (Auto) 20.3 Logan % (Auto) 10.5 H Eos % (Auto) 1.5 Baso % (Auto) 0.2 Absolute Neuts (auto) 4.0 Absolute Lymphs (auto) 1.20 Total Counted Not Reportable Sodium 143 Potassium 3.9 Chloride 111 H Carbon Dioxide 27.0 Anion Gap 5 BUN 11 Creatinine 0.50 L Estim Creat Clear Calc 136.61 Est GFR (MDRD) Af Amer 217 Est GFR (MDRD) Non-Af 179 BUN/Creatinine Ratio 22.1 H Glucose 87 Calcium 7.6 L Discharge Activity: Use Crutches Weight Bearing Status: Weight bearing as tolerated Call your doctor if you observe: Fever of 101 or Higher, Uncontrolled pain Home Medications: Medications to take at Discharge Glucosamine/D3/Boswellia Antonia [Glucosamine Daily Complex Tab] 1 tab PO DAILY 04/09/18 Multivit-Min/FA/Lycopen/Lutein [Centrum Silver Men Tablet] 1 tab PO DAILY 04/09/18 Donora-3 Fatty Acids/Fish Oil [Fish Oil 1,000 mg Capsule] 1 each PO DAILY 04/09/18 Saw Evergreen Fruit [Saw Evergreen] 450 mg PO BID 04/09/18 Zinc 50 mg PO DAILY 04/09/18 Ferrous Sulfate 325 mg PO BIDCM #60 tablet 04/11/18 Oxycodone [Oxyir] 5 mg PO Q4H PRN PRN 5 Days #20 tab 04/11/18 Rivaroxaban [Xarelto] 10 mg PO DAILY@0600 #10 tablet 04/11/18 Following Prescrptions Were Given to Patient: Oxycodone [Oxyir] 5 mg PO Q4H PRN PRN 5 Days #20 tab PRN Reason: Moderate Pain (pain scale 4-5) Rivaroxaban [Xarelto] 10 mg PO DAILY@0600 #10 tablet Ferrous Sulfate 325 mg PO BIDCM #60 tablet Primary Care Physician: Care Physician,No Primary [Primary Care Provider] - Please Follow Up With: Diallo Alicea MD When: 7 days Disposition: Home with Home Health Minutes spent on discharge:: 40 Patient Condition:: Stable Medical Necessity - Tobacco Use Smoking Status: Former smoker Tobacco Use: Cigarettes Meaningful Use Info Meaningful Use Diagnoses (Choose all that apply): None applicable Code Visit Inpatient E&M: 57002 Disch Hosp
--- NOTE | 2018-04-11 11:52 | CASEMGMT ---
ARIELLA MODI Note: Call to Kandi @ [facility]. OBC claim has not been approved yet, so there will be a delay on C9 being approved. ARIELLA MODI spoke with pt who states he can borrow a walker until C9 is approved. Called to [facility] [place] to notify that script for walker will not be filled until C9 is approved. Hank RODGERS RN ACM
== END 2018-04-11 12:25 | disposition home or self-care (01) | DRG 482 ==
LOC: ED 14:33 → MS2 15:00
PROVIDERS: Orthopaedic Surgery; Admitting Provider Family Medicine; Emergency Provider Emergency Medicine; Visit Provider Student in an Organized Health Care Education/Training Program
PROC: 0QS706Z Reposition Left Upper Femur with Intramedullary Internal Fixation Device, Open Approach (ICD-10-PCS; CPT 27245; principal; 2018-04-09 17:00)
DX: S72.142A Displaced intertrochanteric fracture of left femur, initial encounter for closed fracture (principal); W11.XXXA Fall on and from ladder, initial encounter; Y99.0 Civilian activity done for income or pay; Z87.891 Personal history of nicotine dependence
CPT/HCPCS: 36415; 71045; 73502; 73503; 73552; 76000; 80048; 83735; 85025; 85027; 85610; 86850; 86900; 93005; 97161; 97165; 97530; 99283; C1776; J7030; A4216; J2405

== ENCOUNTER 2024-09-08 16:04 | Emergency (ER) | payer OTHER, SELFPAY ==
[2024-09-08 16:04] VITALS: BP 153/93; PULSE 87; RESP 19; TEMP 36.5; O2SAT 99
--- NOTE | 2024-09-08 16:19 | RAD_ITS ---
EXAM: ELBOW MIN 3 VIEWS CLINICAL HISTORY: PAIN AND SWELLING COMPARISON: None. TECHNIQUE: Frontal, oblique, and lateral views of right elbow FINDINGS: Acute fracture of the right olecranon, with a proximally 2.1 cm diastasis between the fracture fragments. The fracture extends to the articular surface. Moderate soft tissue swelling. No radiopaque foreign body is present. RAD/Elbow min 3 Views IMPRESSION: Acute right olecranon fracture extending to the articular surface. Dr. Roberto discussed these findings with Dr. Hidalgo via telephone at 5:14 pm 09/08/24. Reading Location: [id number]
--- NOTE | 2024-09-08 17:46 | EX.ED.UPPERE ---
HPI History of Present Illness Chief Complaint: Upper Extremity Injury Informant: patient and spouse/S.O. Narrative Narrative: 69-year-old male presenting to the emergency room with a chief complaint of right elbow injury. Patient states that he was walking when he tripped over a rise in the concrete and landed on his left elbow. He denies any head injury or headache. He notes pain in the right elbow as well as swelling. Patient states he has had prior left hip surgery due to fracture with Dr. Alicea here locally. He denies neck or back pain. He denies any wrist or hand symptoms. PFSH PFSH Home Medications ?Medication ?Instructions ?Recorded ?Last Taken ?Type glucosamine [id number] 1 tab PO DAILY supplement 04/09/18 04/09/18 History fidel 1,500 mg-400 unit-100 mg tablet (Glucosamine Daily Complex) [id number] 300 mcg-K 60 1 tab PO DAILY supplement 04/09/18 04/08/18 History mcg-lycop 600 mcg-lutein 300 mcg tablet (Centrum Silver Men) omega-3 fatty acids-fish oil 340 1 ea PO DAILY supplement 04/09/18 04/09/18 History mg-1,000 mg capsule (Fish Oil) saw palmetto 450 mg capsule 450 mg PO BID supplement 04/09/18 04/09/18 History zinc 50 mg tablet 50 mg PO DAILY supplement 04/09/18 04/09/18 History ferrous sulfate 325 mg (65 mg 325 mg PO BIDCM ##60 04/11/18 Unknown Rx iron) tablet rivaroxaban 10 mg tablet (Xarelto) 10 mg PO DAILY@0600 ##10 04/11/18 Unknown Rx oxycodone-acetaminophen 5 mg-325 1 tab PO Q6H PRN pain 3 days #12 09/08/24 Unknown Rx mg tablet (Percocet) tabs Allergy/AdvReac Type Severity Reaction Status Date / Time No Known Allergies Allergy Verified 04/09/18 11:53 Surgical History History of hip surgery Social History Smoking Status: Former smoker ROS ROS ED Constitutional Constitutional ED: Denies chills, fever(s) or weight loss Eyes Eyes: Denies change in vision or diplopia ENT ENT ED: Denies ear pain, rhinorrhea or sore throat Cardiovascular Cardiovascular: Denies chest pain, orthopnea, palpitations or racing heartbeat Respiratory/Chest Respiratory/Chest: Denies cough, dyspnea or orthopnea Gastrointestinal Gastrointestinal: Denies abdominal pain, diarrhea, nausea or vomiting Genitourinary Genitourinary ED: Denies dysuria, hematuria or urinary frequency Musculoskeletal Musculoskeletal: Reports other Details: See history of present illness ; Denies arthralgias, back pain, myalgias or neck pain Integumentary Denies abscess or rash Neurologic Neurologic: Denies headache(s), paresthesias or weakness Psychiatric Psychiatric: Denies anxiety, depression, suicidal ideation or suicidal thoughts Endocrine Endocrinology: Denies polydipsia, polyphagia or polyuria Allergic/Immunologic Allergic/Immunologic ED: Denies mouth swelling, tongue swelling or urticaria EXAM Physical Exam Const Vital Signs: 09/08/24 16:04 Temperature 97.7 F L Temperature Source Temporal Pulse Rate 87 Respiratory Rate 19 H Blood Pressure 153/93 H Blood Pressure Mean 113 Pulse Ox 99 Oxygen Delivery Method Room Air Positive well nourished and well developed General Appearance ED: well developed and NAD HEENT Reports normocephalic, head/scalp atraumatic and moist mucous membranes Eyes PERRL and EOMs intact bilaterally Neck full ROM, no lymphadenopathy, supple and no JVD Resp normal respiratory effort and clear to auscultation bilaterally Cardio regular rate, regular rhythm and no murmurs GI normal to inspection, nondistended, normoactive bowel sounds and non-tender Palpation: soft Back/Spine no CVA tenderness and normal ROM Extremity Extremity Narrative: There is a large posterior left elbow hematoma. Distally the right wrist and hand. Neurovascular intact normal function range of motion. He has limited range of motion at the right elbow due to pain. I do not appreciate any proximal humerus/shoulder/clavicular injury. General Extremety ED: Negative for edema General Extremity: Negative for edema Neuro oriented x3 and CN's II-XII intact bilaterally Sensorium / Orientation: alert Motor Exam: strength 5/5 throughout Psych mental status grossly normal Mood & Affect: Negative for depressed or tearful Skin no rashes or lesions noted and no wounds MDM MDM MDM Narrative Medical decision making narrative: Differential diagnosis includes fracture sprain hematoma ligamentous injury muscular injury neurovascular injury Patient has no head injury or complaints of head symptoms. Do not feel strongly that he needs CT of the brain. My independent interpretation of the plain films of the right elbow he has an acute fracture of the olecranon that is comminuted and displaced. Patient was placed in a well-padded posterior Ortho-Glass splint. He was given a sling. He initially declined pain medication but I will write for some Percocet for home use if needed. Patient will follow-up with orthopedics Dr. Alicea whom he seen before. History & Record Review Discussion w/independent historian: Patient and Significant other Radiography Diagnostic Testing: Clinical Impression(s) from Imaging Studies Elbow X-Ray 09/08/24 16:19 IMPRESSION: Acute right olecranon fracture extending to the articular surface. Dr. Roberto discussed these findings with Dr. Hidalgo via telephone at 5:14 pm 09/08/24. Reading Location: [facility] Discharge Plan Triage Chief Complaint: Upper Extremity Injury ED Provider: Ernesto Hidalgo Dx/Rx/DC Orders Clinical Impression: Closed fracture of right elbow, Fall Instructions: ED Elbow Fracture Prescriptions: New oxycodone-acetaminophen [Percocet] 5-325 mg tablet 1 tab PO Q6H PRN (Reason: pain) 3 Days Qty: 12 0RF No Action zinc 50 MG tablet 50 mg PO DAILY saw palmetto 450 MG capsule 450 mg PO BID omega-3 fatty acids-fish oil [Fish Oil] 1 EACH capsule 1 ea PO DAILY [id number] serr [Glucosamine Daily Complex] 1 EACH tablet 1 tab PO DAILY [id number] [Centrum Silver Men] 1 EACH tablet 1 tab PO DAILY rivaroxaban [Xarelto] 10 MG tablet 10 mg PO DAILY@0600 Qty: 10 0RF ferrous sulfate 325 MG tablet 325 mg PO BIDCM Qty: 60 2RF Primary Care Provider: Care Physician,No Primary Referrals: Diallo Alicea MD [Med Staff - Active Staff] - As soon as possible Care Physician,No Primary [Primary Care Provider] - Print Language: Mohawk Disposition Disposition: Home, Self Care
== END 2024-09-08 17:51 | disposition home or self-care (01) ==
PROVIDERS: Emergency Provider Emergency Medicine; Visit Provider Emergency Medicine
DX: S52.031A Displaced fracture of olecranon process with intraarticular extension of right ulna, initial encounter for closed fracture (principal); Z87.891 Personal history of nicotine dependence; W01.0XXA Fall on same level from slipping, tripping and stumbling without subsequent striking against object, initial encounter
CPT/HCPCS: 29405; 73080; 99283

== ENCOUNTER → 2024-09-11 | Outpatient (CLI) | payer OTHER, SELFPAY ==
--- NOTE | 2024-09-11 10:01 | EKG12_ITS ---
Test Reason : PRE OP Blood Pressure : */* mmHG Vent. Rate : 74 BPM Atrial Rate : 74 BPM P-R Int : 116 ms QRS Dur : 92 ms QT Int : 380 ms P-R-T Axes : 73 91 80 degrees QTcB Int : 421 ms Normal sinus rhythm Rightward axis Borderline ECG Confirmed by LEONORA VICKERS, NADIA ([id number]), deputy editor in chief AILYN CABRALES ([id number]) on 09/12/2024 7:01:39 AM Referred By: Codie Gomez Confirmed By: NADIA LEA MD
[2024-09-11 10:54] LABS: Absolute Lymphocyte Count 1.43 X10^3/uL (0.83-4.51); Absolute Neutrophil Count 5.5 X10^3/uL (2.0-7.7); Basophil# 0.04 X10^3/uL; Basophil% 0.5 % (0-1); Eosinophils% 1.2 % (0-5); Hematocrit 39.2 % (40-54); Hemoglobin 13.5 g/dL (13.0-16.5); Lymphocyte # 1.43 X10^3/ul (0.83-4.51); Lymphocyte % 17.8 % (19-41); Mean Corp Hgb Conc 34.4 g/dL (32-36); Mean Corpuscular Hgb 32.4 pg (27.0-32.0); Mean Platelet Vol. 8.3 fl (6.2-12.0); Monocyte# 0.97 X10^3/uL; Monocyte% 12.1 % (0-10); NRBC Flagged by Analyzer 0 % (0-5); Neutrophil # 5.46 X10^3/uL (2.7-7.7); Platelet Count 188 K/mm3 (150-450); RBC Distribution Width CV 12.8 % (11.6-14.6); RBC Distribution Width SD 44.1 fl (35.1-43.9); Red Blood Count 4.17 M/mm3 (4.6-6.2)
[2024-09-11 11:15] LABS: Anion Gap 9 (5-15); BUN 12 mg/dL (4-19); BUN/Creat Ratio 17.6 RATIO (10-20); Calcium,Total 9.2 mg/dL (7.6-11.0); Carbon Dioxide 26.6 mmol/L (21.0-32.0); Chloride 96 mmol/L (98-108); Creatinine, Serum 0.69 mg/dL (0.70-1.20); EST Glomerular Filtration Rate 100 (>60); Glucose 99 mg/dL (70-99); Potassium 4.1 mmol/L (3.3-5.1); Sodium Level 131 mmol/L (133-145)
== END | disposition home or self-care (01) ==
LOC: PSN 09:47
PROVIDERS: Referring Provider Physician Assistant Surgical; Visit Provider Physician Assistant Surgical
DX: Z01.818 Encounter for other preprocedural examination (principal); Z01.810 Encounter for preprocedural cardiovascular examination
CPT/HCPCS: 36415; 80048; 85025; 93005